=== PATIENT | male | born 1985 | race Caucasian/White ===

== ENCOUNTER → 2017-04-02 | Outpatient (CLI) | payer OTHER ==
--- NOTE | ~2017-04-02 | CR207 ---
[facility] A Service [facility] RADIOLOGY TEXT RESULTS PATIENT: LINO KO LOCATION: [facility] : [birth year] UNIT #: [id number] AGE: [address]: LINO FERRO MD SEX: M ORDER DR: [id number] [address] [id number] O MR#: [id number] Acc #: [id number] NAME: LINO KO : 1985 SEX: M STUDY DATE/TIME: 04/02/2017 10:38 UNIT: [facility] ROOM: STUDY DESCRIPTION: CR Pelvis Min 3 Views Attending Physician: Lino Ferro M.D. Referring Physician: Lino Ferro M.D. Ordering Physician: Lino Ferro M.D. Primary Care Physician: Lino Ferro M.D. MEDICAL IMAGING REPORT This report is preliminary unless electronic signature is present. EXAM Pelvis 3 views, 04/02/2017 10:38 hours HISTORY 32-year-old man with history of 10 years of BMX cycle riding. Hip pain, ischial pain. COMPARISON None FINDINGS AP pelvis and frog lateral views of both hips demonstrate normal joint space. There is no spurring or joint space loss. No abnormalities are seen at the ischii. The sacroiliac joints do appear abnormal with sclerosis on both the sacral and iliac sides of the joints suggesting sacroiliitis. IMPRESSION 1. Normal appearance to the hip joints. 2. Bilateral abnormal appearance to the sacroiliac joints with sclerosis on both the sacral and iliac sides of the joints suggesting sacroiliitis. Dictated by... Ashley Lind M.D. THIS IS AN ELECTRONICALLY VERIFIED REPORT Ashley Lind M.D. at 04/05/2017 9:00 AM Gayla TD: 04/02/2017 14:54 JOB #: [id number] [facility] A Service of [facility] RADIOLOGY TEXT RESULTS PATIENT: LINO KO LOCATION: [facility] #: [id number] : [birth year] UNIT #: [id number] AGE: [address]: LINO FERRO MD SEX: M ORDER DR: MEDICAL IMAGING REPORT Page 1 of 1
== END | disposition home or self-care (01) ==
LOC: SRAD 10:31
DX: M25.559 Pain in unspecified hip (principal); M53.3 Sacrococcygeal disorders, not elsewhere classified
CPT/HCPCS: 72190